=== PATIENT | female | born 1995 | race Caucasian/White ===

== ENCOUNTER 2018-05-07 18:17 | Emergency (ER) | payer MEDICAID, OTHER ==
[~2018-05-07] VITALS: Ht 172.7 cm; Wt 119.7 kg
[2018-05-07] MEDS ORDERED: DIPH25TA65 PO (18:59)
[2018-05-07] MEDS ORDERED: ALPR0.25 PO (19:00)
[2018-05-07] MEDS ORDERED: ETON1VAG VG (19:01)
[2018-05-07 19:09] LABS: BILIRUBIN,URINE NEGATIVE (NEGATIVE); CLARITY,URINE CLEAR; COLOR,URINE YELLOW; GLUCOSE, URINE (UA) NEGATIVE (NEGATIVE); KETONES,URINE NEGATIVE (NEGATIVE); LEUKOCYTE ESTERASE ,URINE NEGATIVE (NEGATIVE); NITRITE,URINE NEGATIVE (NEGATIVE); PH,URINE 5 (5-9); PROTEIN,URINE NEGATIVE (NEGATIVE); UROBILINOGEN,URINE NORMAL (NORMAL)
--- NOTE | 2018-05-07 19:10 | ED Back Pain ---
General Chief Complaint: Back Problems Stated Complaint: R LEG AND BACK PAIN Nursing Triage Note: PT AMB. TO ROOM 9. A&OX4. CO LOWER RT BACK PAIN THAT RADIATED DOWN RT LEG AND THROUGH RECTUM WITH NOTED PARASTESIA. PT REPORTS SHE PICKED UP HER DOG 3X DAYS AGO AND HAS HAD INCREASING DISCOMFORT SINCE. PT REPORTS URINARY URGENCY. Nursing Sepsis Screen: No Definite Risk Source of Information: Patient Exam Limitations: No Limitations History of Present Illness Date Seen by Provider: May 07, 2018 Time Seen by Provider: 19:05 Initial Comments Patient is a 23-year-old female who presents to the emergency room for lower back pain that started 3 days ago after lifting her pitbull which weighs approximately 80 pounds. She reports that the pain is became worse over the past 3 days and today she lost control of her bladder and urinated. She does report saddle paresthesia and numbness going down her right leg. She does report being seen in urgent care 3 days ago when the injury happened but reports the pain is becoming worse and has no longer controlled by her Tylenol threes or prescribed. Location: Lumbar Spine Timing/Duration: 2-3 Days, Getting Worse Severity: Mild Pain/Injury Location: Back Radiation: Upper Legs Method of Injury: Other (lifting) Modifying Factors: Improves With Movement Associated Symptoms: numbness in legs/feet, tingling in legs/feet, lower back pain, loss of bladder control; No loss of bowel control Allergies and Home Medications Allergies Coded Allergies: Penicillins (Verified Allergy, Unknown, 05/07/18) Sulfa (Sulfonamide Antibiotics) (Verified Allergy, Unknown, 05/07/18) ceftriaxone (Verified Allergy, Unknown, 05/07/18) hydroxyzine (Verified Allergy, Unknown, 05/07/18) iodine (Verified Allergy, Unknown, 05/07/18) ketorolac (Verified Allergy, Unknown, 05/07/18) tramadol (Verified Allergy, Unknown, 05/07/18) Home Medications Alprazolam 0.25 Mg Tablet, 0.25 MG PO PRN, (Reported) Diphenhydramine HCl 25 Mg Tablet, 25 MG PO DAILY, (Reported) Patient Home Medication List Home Medication List Reviewed: Yes Constitutional: see HPI; No chills, No diaphoresis, No dizziness EENTM: no symptoms reported Respiratory: see HPI; No cough, No short of breath, No wheezing Cardiovascular: see HPI; No chest pain, No edema Gastrointestinal: see HPI; No abdominal pain, No constipation, No diarrhea Genitourinary: see HPI; No dysuria, No frequency; incontinence Musculoskeletal: see HPI, back pain; No gout, No neck pain; other (patient reports numbness and tingling to her genitals and rectum. She also reports that she lost control of her bladder today.) Skin: see HPI; No change in color, No change in hair/nails Psychiatric/Neurological: See HPI; Denies Anxiety, Denies Depressed All Other Systems Reviewed Negative Unless Noted: Yes Past Agbasjz-Zhrogv-Aawhqy Hx Past Med/Social Hx: Reviewed Nursing Past Med/Soc Hx Patient Social History Alcohol Use: Denies Use Recreational Drug Use: No Smoking Status: Never a Smoker Recent Foreign Travel: No Contact w/Someone Who Travel: No Recent Infectious Disease Expo: No Recent Hopitalizations: No Physical Abuse: No Sexual Abuse: No Seasonal Allergies Seasonal Allergies: Yes Past Medical History Surgeries: Yes Section Respiratory: No Cardiac: No Neurological: No Genitourinary: No Gastrointestinal: No Musculoskeletal: No Endocrine: No HEENT: No Cancer: No Psychosocial: No Nursing Suicide Risk Score: 0 Integumentary: No Blood Disorders: No Family Medical History Reviewed Nursing Family Hx Physical Exam Vital Signs Vital Signs - First Documented 05/07/18 18:30 Temp 99.1 Pulse 111 Resp 16 B/P (MAP) 181/106 (131) Pulse Ox 99 O2 Delivery Room Air Capillary Refill : Less Than 3 Seconds Height, Weight, BMI Height: 5', 8.00" Weight: 264lbs oz, 119.531064pr Method:Stated ,BMI General Appearance: No Apparent Distress, WD/WN HEENT: PERRL/EOMI, TMs Normal, Normal ENT Inspection, Pharynx Normal Neck: Full Range of Motion, Normal Inspection, Non Tender, Supple Cardiovascular: Regular Rate, Rhythm, No Edema, No Gallop, No JVD, No Murmur, Normal Peripheral Pulses Respiratory: Chest Non Tender, Lungs Clear, Normal Breath Sounds, No Accessory Muscle Use, No Respiratory Distress Gastrointestinal: Normal Bowel Sounds, No Organomegaly, No Pulsatile Mass, Non Tender, Soft Back: Normal Inspection, No CVA Tenderness, No Vertebral Tenderness, Other ( the patient does have lumbar tenderness.) Extremity: Normal Capillary Refill, Normal Inspection, Normal Range of Motion, Non Tender, No Calf Tenderness Neurologic/Psychiatric: Alert, Oriented x3, No Motor/Sensory Deficits Skin: Normal Color, Warm/Dry Lymphatic: No Adenopathy Progress/Results/Core Measures Results/Orders Lab Results Laboratory Tests Test 05/07/18 18:53 Range/Units Urine Color YELLOW Urine Clarity CLEAR Urine pH 5 5-9 Urine Specific Pyote 1.020 1.016-1.022 Urine Protein NEGATIVE NEGATIVE Urine Glucose (UA) NEGATIVE NEGATIVE Urine Ketones NEGATIVE NEGATIVE Urine Nitrite NEGATIVE NEGATIVE Urine Bilirubin NEGATIVE NEGATIVE Urine Urobilinogen NORMAL NORMAL MG/DL Urine Leukocyte Esterase NEGATIVE NEGATIVE Urine RBC (Auto) NEGATIVE NEGATIVE Urine RBC NONE /HPF Urine WBC NONE /HPF Urine Squamous Epithelial Cells 5-10 /HPF Urine Crystals NONE /LPF Urine Bacteria FEW H /HPF Urine Casts NONE /LPF Urine Mucus SMALL H /LPF Urine Culture Indicated NO My Orders Orders - MICHELLE HOGAN Ondansetron Oral Dissolve Tab (Zofran (05/07/18 19:15) Morphine Injection (Morphine Injection (05/07/18 19:15) Ua Culture If Indicated (05/07/18 19:03) Im/Sub-Q Injection Non-Ab Ed (05/07/18 ) Medications Given in ED Vital Signs/I&O 05/07/18 05/07/18 05/07/18 05/07/18 18:30 19:18 19:23 20:05 Temp 99.1 99.1 97.2 98.4 Pulse 111 95 94 Resp 16 20 20 B/P (MAP) 181/106 (131) 157/99 (118) 142/96 Pulse Ox 99 98 99 O2 Delivery Room Air Room Air Room Air Blood Pressure Mean: 131 Progress Progress Note : Time: 18:50 Progress Note Given the patient's presenting symptoms of lower back pain, saddle paresthesia, loss of bladder this is concerning for cauda equina syndrome. Due to not having MRI capabilities at our hospital I will have to transfer the patient for MRI and rule out cauda equina syndrome and having neurosurgical availability. The patient prefers [facility] and I will be calling for accepting physician. 1900: Dr. Barnett the [facility] emergency room physician accepts the patient at this time. Plans for transfer are being made at this time through [facility]. Departure Impression Primary Impression: Cauda equina syndrome Disposition: 02 XFER SHT-TRM HOSP Condition: Stable/Unchanged Transfer Time Spoke to Accepting Phy: 19:00 Transfer Progress Notes I spoke to Dr. Barnett at this time and he agrees that the patient should have MRI evaluation and accepts the patient. Transfer Time: 20:15 Transfer Facility: [facility] Method of Transfer: EMS Departure-Patient Inst. Referrals: NO,LOCAL PHYSICIAN (PCP/Family) Primary Care Physician MICHELLE HOGAN May 07, 2018 19:10
[2018-05-07] MEDS ORDERED: morphine INJ 10 MG/ML 1ML (SYR OR VIAL) IJ ONE (19:15)
[2018-05-07] MEDS ORDERED: ONDANSETRON 4 MG (ZOFRAN) ORAL DISSOLVE TAB PO ONE (19:15)
[2018-05-07 19:16] LABS: BACTERIA,URINE FEW /HPF
[2018-05-07 19:23] VITALS: BP 157/99
[2018-05-07 20:05] VITALS: BP 142/96
== END 2018-05-07 20:05 | disposition short-term general hospital (02) ==
LOC: ER 18:19
DX: G83.4 Cauda equina syndrome (principal); Z88.0 Allergy status to penicillin; Z88.2 Allergy status to sulfonamides; Z88.1 Allergy status to other antibiotic agents; Z91.041 Radiographic dye allergy status; Z88.5 Allergy status to narcotic agent; Z87.59 Personal history of other complications of pregnancy, childbirth and the puerperium
CPT/HCPCS: 81000; 96372